=== PATIENT | female | born 1950 | race Caucasian/White ===

== ENCOUNTER 2020-12-15 15:01 | Outpatient (REF) | payer MEDICARE, OTHER, SELFPAY ==
--- NOTE | ~2020-12-15 | XR_ITS ---
EXAMINATION: XR RIBS, LEFT CLINICAL INFORMATION: [place] 9:00 AM COMPARISON: None TECHNIQUE: 3 views of the left ribs were obtained. 1 new chest. FINDINGS: CHEST: The lungs are fairly well-expanded and clear of acute pneumonic process. LEFT RIBS: Multiple views of left RIBS reveal no visible rib fracture or bony abnormality. The soft tissues are normal. XR/XR ribs LT min 3V w [id number] IMPRESSION: Unremarkable chest exam. Unremarkable left rib exam. No acute fracture seen.
== END 2020-12-15 15:02 | disposition home or self-care (01) ==
LOC: HO.HMGCX 15:01
PROVIDERS: PCP Internal Medicine; Visit Provider Hospitalist
DX: R07.81 Pleurodynia (principal)
CPT/HCPCS: 71101